=== PATIENT | female | born 2000 | race Caucasian/White ===

== ENCOUNTER 2022-03-27 13:08 | Inpatient (IN) | payer MEDICAID, SELFPAY ==
[2022-03-27] VITALS (70 sets, daily range): BP systolic 104–169; BP diastolic 56–92; PULSE 66–110; RESP 18; O2SAT 87–100; BMI 36.3
[2022-03-27] MEDS: dextrose 5%-lactated ringers 1,000 ML 125 ML IV ×2 (14:43→21:06)
[2022-03-27] MEDS: oxytocin 30 UNIT/500 ML BAG IV (14:44)
[2022-03-27 14:48] LABS: Basophils % 0.2 %; Eosinophils % 0.2 %; Lymphocytes # 1.8 10^3/uL (0.8-4.8); Lymphocytes % 14.6 %; Mean Corpuscular HGB Conc 33.3 g/dL (30.0-36.0); Mean Corpuscular Hemoglobin 30.7 pg (28.0-34.0); Mean Corpuscular Volume 92.2 fl (81-99); Monocytes # 0.6 10^3/uL (0.2-0.9); Monocytes % 4.5 %; Neutrophils # 10.05 10^3/uL (1.8-7.7); Neutrophils % 80.1 %; Nucleated Red Blood Cells % 0 %; Platelet Count 284 10^3/cmm (130-400); Red Blood Count 3.58 10^6/uL (4.1-5.3); Red Cell Distribution Width 12.8 % (12.1-15.1); White Blood Count 12.6 10^3/uL (4.0-10.0)
[2022-03-27 15:01] LABS: Amphetamines Screen Urine Negative (Negative); Barbiturates Screen Urine Negative (Negative); Benzodiazepines Screen Urine Negative (Negative); Cocaine Screen Urine Negative (Negative); Opiate Screen Urine Negative (Negative); PCP Screen Urine Negative (Negative); THC Screen Urine Positive (Negative)
[2022-03-27] MEDS: lactated ringers 1,000 ML 999 ML IV ×2 (18:49→20:06)
--- NOTE | 2022-03-27 20:15 | ANES.PREANE2 ---
Pre-Anesthetic Assessment Height/Weight: Height 1.68 m Weight 102.058 kg Pulse Resp BP O2 Del Method 72 18 136/80 03/27/22 20:03 03/27/22 13:49 03/27/22 20:03 03/27/22 14:21 Preop Diagnosis: labor epidural Familial anesthetic complications: none Was Beta Sky taken within 24 hours: N/A Was Clonidine taken within 24 hours: N/A Last Intake: 13:00 Social Tobacco and No alcohol .5ppd pack(s) per day 3-4 pack years Exam No alert, oriented x 3, clear to auscultation bilaterally and regular rate & rhythm Airway Submandibular: within normal limits Cervical ROM: within normal limits Mallampati: Class II Dentition: full Pulmonary None reported CV/HEM None reported None reported Hepatic None reported GI Gastroesophageal Reflux Disease (with ) Metabolic None reported Musc/skel Scoliosis (mild) Neuropsych None reported Anesthetic Plan ASA status: 2 Anesthesia: Regional (specify below) Risk of > 500 ml blood loss (7ml/kg in children): No Medications/Allergies Home Medications Medication Instructions Recorded Confirmed Last Taken Type No Known Home Medications 03/27/22 03/27/22 Unknown History Allergies Allergy/AdvReac Type Severity Reaction Status Date / Time No Known Allergies Allergy Verified 03/24/22 13:53 Current Medications Generic Name Dose Route Start Last Admin Trade Name Freq PRN Reason Stop Dose Admin Lactated Ringer's 1,000 mls @ 999 mls/hr 03/27/22 13:48 03/27/22 18:49 Lactated Ringers IV 999 mls/hr .Q1H1M PRN Administration Per L&D Rescitation Protocol Oxytocin 30 unit in 500 mls @ 1 mls/hr 03/27/22 14:00 03/27/22 17:29 Pitocin IV 13 milliunit/min .Q24H DUSTIN 13 mls/hr Titration Protocol 1 MILLIUNIT/MIN Dextrose/Lactated Ringer's 1,000 mls @ 125 mls/hr 03/27/22 14:00 03/27/22 14:43 Dextrose 5%-Lactated Ringers IV 125 mls/hr .Q8H DUSTIN Administration Lactated Ringer's 1,000 mls @ 999 mls/hr 03/27/22 18:43 03/27/22 20:06 Lactated Ringers IV 999 mls/hr .Q1H1M PRN Administration See label comments PFSH Anesthesia Female Reproductive History : 1 Data Anesthesia : 03/27/22 14:05 Short CBC 03/27/22 Range/Units 14:05 WBC 12.6 H (4.0-10.0) 10^3/uL Hgb 11.0 L (11.5-15.3) g/dL Hct 33.0 L (37.0-47.0) % MCV 92.2 (81-99) fl Plt Count 284 (130-400) 10^3/cmm Neut % (Auto) 80.1 % Neut # (Auto) 10.05 H (1.8-7.7) 10^3/uL Cardiac Studies: No Data to Display
--- NOTE | 2022-03-27 20:52 | ANES.PROC ---
Anesthesia Procedures Procedure/Date: 03/27/22 Epidural: Time Out Performed: Yes Consents Signed: Procedure Consent and NPO Consent Consent: requested by attending/covering physician, from patient, risks and benefits reviewed and patient agrees to proceed Lumbar Level: L3-L4 Epidural position: sitting Epidural procedure: sterile prep of area (betadine), 1% lidocaine to numb the area (3 mLs), neg for paresthesia, test dose given, 1.5% xylocaine 1:200k epi (3 mLs/ 2 mLs), 0.2% Ropivacaine bolus ml (5 mLs), placed PCEA, no systemic response, sterile dressing applied, L.U.D. no apparent complications and 0.2% Ropiavacaine @ mls/hr (13)
[2022-03-27] MEDS: alum-mag-hydroxide-sime 30 mL UDC PO (21:21)
[2022-03-27] MEDS: ondansetron 2 mg/ML SDV 2 mL 4 MG IVP (22:54)
[2022-03-28] VITALS (46 sets, daily range): BP systolic 96–137; BP diastolic 52–80; PULSE 56–106; RESP 17–18; TEMP 36.6–36.9
--- NOTE | 2022-03-28 04:56 | PM.DELIVERY ---
Delivery Note: Date of delivery: March 28, 2022 Procedure: Normal spontaneous vaginal delivery Estimated blood loss (mL): 100 Pre-Delivery Course: The patient had insufficient care at [facility]. Her EDC was determined by a 15-week ultrasound. she was blood type a positive, antibody negative, GC chlamydia negative, hepatitis C surface antibody nonreactive, hepatitis B surface antigen nonreactive, HIV nonreactive, rubella immune, urine drug screen was positive for marijuana, Delivery: This is a 21-year-old G1, P0 at 40 weeks 5 days gestation who was admitted for postdate induction. Her cervix was favorable so she was started on Pitocin. She underwent artificial rupture of membranes approximately 9 hours prior to delivery. The fluid was clear. The patient received an epidural for pain management. She only had to push through 5 contractions and had a normal spontaneous vaginal delivery of a viable female infant weight 3520 g, 7 pounds 12 ounces, Apgars 8 and 9 over an intact perineum. The infant was suctioned at delivery and placed on the mother's chest. The cord was clamped and cut. The placenta was delivered grossly intact and normal to inspection. There was a first-degree perineal laceration that was sutured using 3-0 chromic. Mother and infant were doing well after delivery. A&P Assessment and plan (1) Normal spontaneous vaginal delivery: Status: Acute Coding Level of Care Code Acute Teletype Telegrapher for Chg Fwd Diagnoses Normal spontaneous vaginal delivery O80
[2022-03-28] MEDS: dextrose 5%-lactated ringers 1,000 ML 125 ML IV (05:12)
--- NOTE | 2022-03-28 08:00 | PC.NURSE ---
Pt up to restroom Pt up to restroom with 1 person assist. No dizziness or lightheadedness noted. Pericare educated and performed by patient. Bed cushion placed and bedding changed.
--- NOTE | 2022-03-28 10:33 | PC.NURSE ---
DSS at bedside at this time.
--- NOTE | 2022-03-28 11:35 | PC.NURSE ---
DSS stated they would do a walk through of the home on 03/29/22. The patient and her mother aware. The worker stated that the patient could be discharged to home with baby unless we heard differently from their worker following the walk through.
[2022-03-28] MEDS: ibuprofen 800 mg tablet PO ×2 (14:27→21:06)
[2022-03-28 16:52] LABS: Hematocrit 31.9 % (37.0-47.0); Hemoglobin 10.6 g/dL (11.5-15.3); Mean Corpuscular HGB Conc 33.2 g/dL (30.0-36.0); Mean Corpuscular Hemoglobin 31.1 pg (28.0-34.0); Mean Corpuscular Volume 93.5 fl (81-99); Mean Platelet Volume 9.5 fL (7.4-10.4); Platelet Count 240 10^3/cmm (130-400); Red Blood Count 3.41 10^6/uL (4.1-5.3); Red Cell Distribution Width 13.1 % (12.1-15.1); White Blood Count 16.7 10^3/uL (4.0-10.0)
[2022-03-29 05:41] VITALS: BP 130/76; PULSE 72; RESP 16; TEMP 36.6
[2022-03-29] MEDS: prenatal vitamin Capsule 1 CAP PO (09:53)
[2022-03-29] MEDS: ibuprofen 800 mg tablet PO (09:53)
[2022-03-29] MEDS: docusate sodium 100 mg Capsule PO (09:54)
[2022-03-29 09:57] VITALS: BP 128/80; PULSE 69; RESP 18; TEMP 36.6; TEMP 36.7
--- NOTE | 2022-03-29 11:48 | PM.DCS ---
Discharge Providers Date of Admission: 03/27/22 13:08 Date of Discharge: March 29, 2022 Attending Provider at Admission: Roxann Dixon MD Attending Provider at Discharge: Roxann Dixon MD Primary Care Provider: Aron Lofton MD Reason for Visit Reason for Visit: Induction Hospital Course Hospital Course This is a 21-year-old G1 now P1 who was admitted for postdate induction. She had a normal spontaneous vaginal delivery of a viable female . Mother and infant did well after delivery. Mother was ambulating, tolerating a regular diet, decreased vaginal bleeding and was comfortable with discharge home. Physical Exam Narrative: Alert and oriented sitting in bed working on paperwork, heart regular rate and rhythm, lungs clear to auscultation bilaterally, abdomen is soft and nontender with a firm fundus that is U- 2, there is some nonpitting extremity edema and no calf tenderness. Urinary Catheter Management: Cordero: Cath Placed During This Visit: yes, but has since been removed by the nurse Reason for Continuing Indwelling Catheter: Decision to DC Catheter Urinary Catheter Date of Insertion: 03/27/22 Urinary Catheter Time of Insertion: 21:20 Date Urinary Catheter Removed: 03/28/22 Time Urinary Catheter Discontinued: 04:16 Discharge Data Studies Completed and Pending Laboratory Results WBC 16.7 10^3/uL (4.0-10.0) H 03/28/22 16:30 RBC 3.41 10^6/uL (4.1-5.3) L 03/28/22 16:30 Hgb 10.6 g/dL (11.5-15.3) L 03/28/22 16:30 Hct 31.9 % (37.0-47.0) L 03/28/22 16:30 MCV 93.5 fl (81-99) 03/28/22 16:30 MCH 31.1 pg (28.0-34.0) 03/28/22 16:30 MCHC 33.2 g/dL (30.0-36.0) 03/28/22 16:30 RDW 13.1 % (12.1-15.1) 03/28/22 16:30 Plt Count 240 10^3/cmm (130-400) 03/28/22 16:30 MPV 9.5 fL (7.4-10.4) 03/28/22 16:30 Neut % (Auto) 80.1 % 03/27/22 14:05 Lymph % (Auto) 14.6 % 03/27/22 14:05 [place] % (Auto) 4.5 % 03/27/22 14:05 Eos % (Auto) 0.2 % 03/27/22 14:05 Baso % (Auto) 0.2 % 03/27/22 14:05 Neut # (Auto) 10.05 10^3/uL (1.8-7.7) H 03/27/22 14:05 Lymph # (Auto) 1.8 10^3/uL (0.8-4.8) 03/27/22 14:05 [place] # (Auto) 0.6 10^3/uL (0.2-0.9) 03/27/22 14:05 Eos # (Auto) 0.0 10^3/uL (0.0-0.8) 03/27/22 14:05 Baso # (Auto) 0.0 10^3/uL (0.0-0.1) 03/27/22 14:05 Nucleated RBC % (auto) 0 % 03/27/22 14:05 Nucleated RBCs # 0.0 /100WBC 03/27/22 14:05 Urine Opiates Screen Negative ng/mL (Negative) 03/27/22 14:05 Ur Barbiturates Screen Negative ng/mL (Negative) 03/27/22 14:05 Ur Phencyclidine Scrn Negative ng/mL (Negative) 03/27/22 14:05 Ur Amphetamines Screen Negative ng/mL (Negative) 03/27/22 14:05 U Benzodiazepines Scrn Negative ng/mL (Negative) 03/27/22 14:05 Urine Cocaine Screen Negative ng/mL (Negative) 03/27/22 14:05 U Marijuana (THC) Screen Positive ng/mL (Negative) H 03/27/22 14:05 Vitals Last Vital Signs Temp 98.0 F 03/29/22 09:57 Pulse 69 03/29/22 09:57 Resp 18 03/29/22 09:57 BP 128/80 03/29/22 09:57 Pulse Ox 100 03/27/22 21:17 O2 Del Method 03/27/22 14:21 Discharge Plan Discharge Patient Disposition: Home Condition: Stable Prescriptions: No Action No Known Home Medications Discharge Orders: Discharge Order (Routine); Ordered 03/29/22 Ordered By: Roxann Dixon Referrals: Roxann Dixon MD [Physician] - 1 month Discharge Diet: Usual diet Discharge Activity: Resume usual activity Patient Instructions: Opioid Safety Discharge Attestations Time Spent in Discharge Care*: less than 30 min Quality Metrics Clinical Quality Measures [ No reported AMI, CVA or VTE this stay] Coding Level of Care Code Acute [facility] note
[2022-03-29 16:15] VITALS: BP 131/70; PULSE 80; RESP 18
== END 2022-03-29 16:45 | disposition home or self-care (01) | DRG 806 ==
PROVIDERS: Admitting Provider Family Medicine; PCP Family Medicine; Visit Provider Family Medicine
DX: O48.0 Post-term pregnancy (principal); O99.324 Drug use complicating childbirth; Z37.0 Single live birth; F12.90 Cannabis use, unspecified, uncomplicated; O70.0 First degree perineal laceration during delivery; Z3A.40 40 weeks gestation of pregnancy
CPT/HCPCS: 36415; 51702; 59025; 59409; 80306; 85025; 85027; J2405; J2795

== ENCOUNTER 2024-01-19 10:53 | Inpatient (IN) | payer BC, MEDICAID, SELFPAY ==
[2024-01-19] VITALS (18 sets, daily range): BP systolic 123–147; BP diastolic 62–90; PULSE 46–166; RESP 14–20; TEMP 36.3–36.8; O2SAT 98; BMI 37.8
[2024-01-19 10:49] LABS: Basophils % 0.3 %; Eosinophils % 0.2 %; Hematocrit 33.7 % (36-47); Lymphocytes % 16.3 %; Mean Corpuscular Hemoglobin 30.6 pg (27-33); Mean Corpuscular Volume 87.5 fl (85-98); Mean Platelet Volume 10.2 fL (7.4-10.4); Monocytes # 0.6 10^3/uL (0.2-0.9); Monocytes % 4.9 %; Neutrophils # 9.79 10^3/uL (1.8-7.7); Neutrophils % 78.1 %; Nucleated Red Blood Cells % 0 %; Platelet Count 293 10^3/cmm (157-399); Red Blood Count 3.85 10^6/uL (3.85-5.65); Red Cell Distribution Width 13.2 % (12.1-15.1); White Blood Count 12.53 10^3/uL (3.29-11.43)
[2024-01-19] MEDS: oxytocin 30 UNIT/500 ML BAG 600 UNIT IV (10:51)
--- NOTE | 2024-01-19 10:57 | P.HP_ITS ---
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 She began having contractions at 4:00 this morning. She arrived to the hospital was 6 cm dilated. She had spontaneous rupture of membranes shortly after arrival. She then progressed to complete shortly thereafter. The patient saw Dr. Dixon earlier in her . She did not have any other appointments after 20-week ultrasound. She did not have any care what ever after that. She states that she has not had any problems, she states that she got her feelings hurt, and that she should have come back for appointments, but time went faster than she thought and she just did make it back to the office. She states that she clearly has not had any drug use throughout her . Present Details : 2 Para: 1 Review of Systems 2 General: Reports: 10 or more systems reviewed and unremarkable except in HPI and below Const: Reports: fatigue; Denies: fever(s) Eyes: Denies: change in vision Card: Denies: chest pain Musc: Reports: back pain Srinivasa/Lymph: Denies: easy bruising Medications/Allergies Home Medications Medication Instructions Recorded Confirmed Last Taken Type No Known Home Medications 03/27/22 03/27/22 Unknown History Allergies Allergy/AdvReac Type Severity Reaction Status Date / Time No Known Allergies Allergy Verified 03/24/22 13:53 History History History 2 2 Term 1 0 Miscarriages/Ectopic 0 Living Children 1 Vitals/I&O/Wt Weight last 48 hrs Weight 234 lb Physical Exam 2 Const: COMMON NORMALS: patient oriented x3 and alert HENMT: COMMON NORMALS: moist oral mucous membranes HEAD & SCALP: normal to inspection Chest: COMMONS NORMALS: normal inspection of the chest Resp: COMMON NORMALS: normal respiratory effort AUSCULTATION: clear to auscultation bilaterally Cardio: COMMON NORMALS: regular rate and regular rhythm RATE: regular rate RHYTHM: regular rhythm GI: INSPECTION: Yes normal to inspection and Yes other (Gravid) Extremity: COMMON NORMALS: normal to inspection GENERAL: Yes edema (Trace) Neuro: COMMON NORMALS: patient oriented x3, moves all extremities and no sensory deficits noted SENSORIUM/ORIENTATION: Yes alert Psych: COMMON NORMALS: mental status grossly normal Skin: COMMON NORMALS: no rashes or lesions noted GENERAL SKIN EXAM: no rashes or lesions noted Data 01/20/24 00:05 Results Labs OB ([facility]): 2 Blood Type A Positive 01/19/24 Antibody Screen Negative 01/19/24 Hct 28.9 % (36-47) L 01/20/24 Hgb 9.90 g/dL (11.27-16.99) L 01/20/24 Rho(D) Type Rh positive 01/19/24 Plt Count 254 10^3/cmm (157-399) 01/20/24 Hep Bs Antigen Non-reactive (Nonreactive) 01/19/24 Rubella IgG Antibody 257.1 IU/mL (0.0-10.0) H 01/19/24 RPR Nonreactive (Nonreactive) 01/19/24 HIV 1&2 Ab & HIV 1 Ag Non-reactive (Non-Reactiv) 01/19/24 C.trachomatis RNA (TMA) Pending 01/19/24 N.gonorrhoeae RNA (TMA) Pending 01/19/24 Chlamydia/GC Comment Pending 01/19/24 Urine Opiates Screen Negative ng/mL (Negative) 01/19/24 Ur Barbiturates Screen Negative ng/mL (Negative) 01/19/24 Ur Phencyclidine Scrn Negative ng/mL (Negative) 01/19/24 Ur Amphetamines Screen Positive ng/mL (Negative) H 01/19/24 U Benzodiazepines Scrn Negative ng/mL (Negative) 01/19/24 Urine Cocaine Screen Negative ng/mL (Negative) 01/19/24 U Marijuana (THC) Screen Negative ng/mL (Negative) 01/19/24 A&P Assessment and plan (1) 39 weeks gestation of : (2) care insufficient: Qualifiers: Trimester: unspecified trimester Qualified Code(s): O09.30 - Supervision of with insufficient care, unspecified trimester Attestations 2 Medical Necessity Statement*: Routine labor and care anticipated. Coding Level of Care Code Acute Code for Chg Fwd Diagnoses 39 weeks gestation of Z3A.39 Insufficient antepartum care O09.30 Trimester: unspecified trimester
[2024-01-19 10:59] LABS: Amphetamines Screen Urine Positive (Negative); Barbiturates Screen Urine Negative (Negative); Benzodiazepines Screen Urine Negative (Negative); Cocaine Screen Urine Negative (Negative); Opiate Screen Urine Negative (Negative); PCP Screen Urine Negative (Negative); THC Screen Urine Negative (Negative)
--- NOTE | 2024-01-19 11:02 | P.PCNOB_ITS ---
Delivery Note: Date of delivery: January 19, 2024 Pre-delivery diagnoses: 23-year-old 2 para 1-0-0-1 at 39 weeks presenting in active labor Post-delivery diagnoses: Status post spontaneous vaginal delivery Procedure: Spontaneous vaginal delivery Estimated blood loss (mL): 75 Pre-Delivery Course: See history and physical Delivery: DELIVERY: The patient progressed to complete without difficulty. She delivered a male with a weight of 8 pounds 13 ounces with Apgars of 8, 8. The baby was delivered from the MOSES position. The baby's mouth and nose were suctioned at the site of the perineum. The baby was then completely delivered and placed on the mother's abdomen. The cord was then clamped and cut. There was no nuchal cord. There was no meconium. The placenta and 3 vessel cord were delivered int act shortly thereafter. The perineum and vaginal vault were carefully examined. No lacerations were noted. Both the mother and the baby were in stable condition. History History History 2 Term 1 0 Miscarriages/Ectopic 0 Living Children 1 A&P Assessment and plan (1) Spontaneous vaginal delivery: I anticipate routine care. Coding Level of Care Code Acute Code for Chg Fwd Diagnoses Spontaneous vaginal delivery O80
[2024-01-19] MEDS: ibuprofen 800 mg tablet PO ×2 (13:39→20:47)
[2024-01-19] MEDS: benzocaine-menthol 78 gm Canister 1 SPRAY TOPICAL (13:40)
[2024-01-19 13:43] LABS: HIV 1 & 2 Antigen Non-Reactive (Non-Reactiv); Rapid Plasma Reagin Syphilis Nonreactive (Nonreactive)
[2024-01-19 13:44] LABS: HIV 1 & 2 Antibody Non-Reactive (Non-Reactiv); Hepatitis B Surface Antigen Non-Reactive (Nonreactive); Rubella IgG 257.1 IU/mL (0.0-10.0)
--- NOTE | 2024-01-19 16:22 | PC.NURSE ---
DFS in room at this time. DFS, patient's mother, and patient discussed plan of placement for baby. DFS states that the plan as of now is for baby to go home with baby's maternal grandmother and for patient to go to rehab, followed by a sober living facility.
--- NOTE | 2024-01-19 16:35 | PC.NURSE ---
Patient moved to room at this time.
[2024-01-19] MEDS: docusate sodium 100 mg Capsule PO (20:48)
[2024-01-20 00:36] LABS: Hematocrit 28.9 % (36-47); Mean Corpuscular HGB Conc 34.3 g/dL (30-55); Mean Corpuscular Hemoglobin 30.8 pg (27-33); Platelet Count 254 10^3/cmm (157-399); Red Blood Count 3.21 10^6/uL (3.85-5.65); Red Cell Distribution Width 13.2 % (12.1-15.1); White Blood Count 10.61 10^3/uL (3.29-11.43)
[2024-01-20 05:27] VITALS: BP 115/72; PULSE 79; RESP 16; TEMP 37.2; O2SAT 97
[2024-01-20 06:00] VITALS: BMI 37.8
[2024-01-20] MEDS: docusate sodium 100 mg Capsule PO (09:35)
[2024-01-20] MEDS: PRENATAL VIT NO.130/IRON/FOLIC 1 EACH TABLET PO (09:35)
[2024-01-20] MEDS: ibuprofen 800 mg tablet PO ×2 (09:35→15:14)
--- NOTE | 2024-01-20 09:54 | PM.OBGYDC ---
Discharge Providers PRINCIPAL SOFTWARE ENGINEER Date of Admission: 01/19/24 10:53 Date of Discharge: 01/20/24 Attending Provider at Admission: Aron Lofton MD Attending Provider at Discharge: Roxann Dixon MD Primary Care Provider: Aron Lofton MD Diagnoses at Discharge Discharge Diagnosis (1) Spontaneous vaginal delivery: Status: Acute Reason for Visit Reason for Visit: Contractions Hospital Course Hospital Course The patient presented to the hospital in active labor and found to be 6 cm dilated. She then quickly progressed to complete and had an unremarkable vaginal delivery. She had not had any care for around 20 weeks. She clearly stated that she had no drug use during her . Later her drug screen came back positive for methamphetamines. After she was told about this her story changed couple of times before she finally admitted that she did use meth and stated that she used it last 1 week ago. Her hospital course has been unremarkable otherwise. Her bleeding has been within normal limits. Her pain has been well-controlled. She has been pleasant and take good care of herself. Information Peripartum Data: Infant Delivery Method: Vaginal Physical Exam Narrative: The patient is alert. She appears comfortable. Her heart has a regular rate and rhythm with no murmurs appreciated. Lungs are clear to auscultation bilaterally. Her fundus is firm and below the umbilicus. History History History 2 Term 1 0 Miscarriages/Ectopic 0 Living Children 1 Discharge Data Studies Completed and Pending Pending at discharge Category Date Time Status Chlamydia/Gonorrh RNA,TMA URO Stat Lab 01/19/24 10:30 Received Retype for Patiets ABO/Rh Routine Lab 01/19/24 11:05 Ordered Laboratory Results WBC 10.61 10^3/uL (3.29-11.43) 01/20/24 00:05 RBC 3.21 10^6/uL (3.85-5.65) L 01/20/24 00:05 Hgb 9.90 g/dL (11.27-16.99) L 01/20/24 00:05 Hct 28.9 % (36-47) L 01/20/24 00:05 MCV 90.0 fl (85-98) 01/20/24 00:05 MCH 30.8 pg (27-33) 01/20/24 00:05 MCHC 34.3 g/dL (30-55) 01/20/24 00:05 RDW 13.2 % (12.1-15.1) 01/20/24 00:05 Plt Count 254 10^3/cmm (157-399) 01/20/24 00:05 MPV 10.0 fL (7.4-10.4) 01/20/24 00:05 Neut % (Auto) 78.1 % 01/19/24 10:37 Lymph % (Auto) 16.3 % 01/19/24 10:37 [place] % (Auto) 4.9 % 01/19/24 10:37 Eos % (Auto) 0.2 % 01/19/24 10:37 Baso % (Auto) 0.3 % 01/19/24 10:37 Neut # (Auto) 9.79 10^3/uL (1.8-7.7) H 01/19/24 10:37 Lymph # (Auto) 2.0 10^3/uL (0.8-4.8) 01/19/24 10:37 [place] # (Auto) 0.6 10^3/uL (0.2-0.9) 01/19/24 10:37 Eos # (Auto) 0.0 10^3/uL (0.0-0.8) 01/19/24 10:37 Baso # (Auto) 0.0 10^3/uL (0.0-0.1) 01/19/24 10:37 Nucleated RBC % (auto) 0 % 01/19/24 10:37 Nucleated RBCs # 0.0 /100WBC 01/19/24 10:37 Urine Opiates Screen Negative ng/mL (Negative) 01/19/24 10:30 Ur Barbiturates Screen Negative ng/mL (Negative) 01/19/24 10:30 Ur Phencyclidine Scrn Negative ng/mL (Negative) 01/19/24 10:30 Ur Amphetamines Screen Positive ng/mL (Negative) H 01/19/24 10:30 U Benzodiazepines Scrn Negative ng/mL (Negative) 01/19/24 10:30 Urine Cocaine Screen Negative ng/mL (Negative) 01/19/24 10:30 U Marijuana (THC) Screen Negative ng/mL (Negative) 01/19/24 10:30 RPR Nonreactive (Nonreactive) 01/19/24 12:55 Hep Bs Antigen Non-reactive (Nonreactive) 01/19/24 12:55 HIV 1&2 Ab & HIV 1 Ag Non-reactive (Non-Reactiv) 01/19/24 12:55 HIV 1&2 Antibody Non-reactive (Non-Reactiv) 01/19/24 12:55 Rubella IgG Antibody 257.1 IU/mL (0.0-10.0) H 01/19/24 12:55 Blood Type A Positive 01/19/24 10:37 Rho(D) Type Rh positive 01/19/24 10:37 Antibody Screen Negative 01/19/24 10:37 Vitals Last Vital Signs Temp 98.9 F 01/20/24 05:27 Pulse 79 01/20/24 05:27 Resp 16 01/20/24 05:27 BP 115/72 01/20/24 05:27 Pulse Ox 97 01/20/24 05:27 O2 Del Method Room Air 01/20/24 05:27 Results Labs OB ([facility]): Blood Type A Positive 01/19/24 Antibody Screen Negative 01/19/24 Hct 28.9 % (36-47) L 01/20/24 Hgb 9.90 g/dL (11.27-16.99) L 01/20/24 Rho(D) Type Rh positive 01/19/24 Plt Count 254 10^3/cmm (157-399) 01/20/24 Hep Bs Antigen Non-reactive (Nonreactive) 01/19/24 Rubella IgG Antibody 257.1 IU/mL (0.0-10.0) H 01/19/24 RPR Nonreactive (Nonreactive) 01/19/24 HIV 1&2 Ab & HIV 1 Ag Non-reactive (Non-Reactiv) 01/19/24 C.trachomatis RNA (TMA) Pending 01/19/24 N.gonorrhoeae RNA (TMA) Pending 01/19/24 Chlamydia/GC Comment Pending 01/19/24 Urine Opiates Screen Negative ng/mL (Negative) 01/19/24 Ur Barbiturates Screen Negative ng/mL (Negative) 01/19/24 Ur Phencyclidine Scrn Negative ng/mL (Negative) 01/19/24 Ur Amphetamines Screen Positive ng/mL (Negative) H 01/19/24 U Benzodiazepines Scrn Negative ng/mL (Negative) 01/19/24 Urine Cocaine Screen Negative ng/mL (Negative) 01/19/24 U Marijuana (THC) Screen Negative ng/mL (Negative) 01/19/24 Discharge Plan Discharge Patient Disposition: Home Condition: Stable Prescriptions: New ibuprofen 800 mg Tablet 800 mg PO TID Qty: 45 0RF Vitamin 27 mg iron- 800 mcg Tablet 1 tab PO DAILY Qty: 90 0RF No Action No Known Home Medications Discharge Orders: Discharge Order (Routine); Ordered 01/20/24 Ordered By: Aron Lofton Referrals: Roxann Dixon MD [Physician] - 6 Weeks Discharge Diet: Usual diet Discharge Activity: Limit activity as instructed Patient Instructions: Opioid Safety Activity Restrictions/Additional Instructions: Encourage to consider rehab. If she has interest at this time please have nephrology social worker help her with options. Discharge Attestations PRINCIPAL SOFTWARE ENGINEER Time Spent in Discharge Care*: less than 30 min Coding Level of Care Code Acute Code for Chg Fwd Diagnoses Spontaneous vaginal delivery O80
[2024-01-20 11:20] VITALS: BP 116/73; PULSE 71; TEMP 36.9; O2SAT 97
[2024-01-20 15:15] VITALS: BP 139/84; PULSE 102; RESP 16; TEMP 36.6; TEMP 36.7
[2024-01-20 16:49] LABS: Chlamydia Trachomatis RNA TMA NOT DETECTED (NOT DETECTED); Neisseria Gonorrhoeae RNA, TMA NOT DETECTED (NOT DETECTED)
[2024-01-20] MEDS: medroxyprogesterone 150 mg/ml SDV 1 mL IM (17:37)
[2024-01-20 17:40] VITALS: BP 139/84; PULSE 102; RESP 16; TEMP 36.7
== END 2024-01-20 17:40 | disposition home or self-care (01) | DRG 807 ==
LOC: OPOB 10:53 → OBGYN 10:53
PROVIDERS: Admitting Provider Family Medicine; PCP Family Medicine; Visit Provider Family Medicine
DX: O99.324 Drug use complicating childbirth (principal); Z37.0 Single live birth; F15.10 Other stimulant abuse, uncomplicated; Z3A.39 39 weeks gestation of pregnancy; O09.33 Supervision of pregnancy with insufficient antenatal care, third trimester
CPT/HCPCS: 36415; 59025; 59409; 80306; 85025; 85027; 86592; 86762; 86850; 86900; 87340; 87491; 87591; 87806; 96372; 99211; J1050; J2590